=== PATIENT | male | born 1940 | race Caucasian/White ===

== ENCOUNTER → 2016-08-12 | Outpatient (CLI) | payer OTHER ==
[~2016-08-12] MED LIST: IOPAMIDOL (ISOVUE-300) 100 ML BTL ONE
== END ==
LOC: CIMAGING 09:07
PROVIDERS: ATTEND Family Medicine
DX: R13.10 Dysphagia, unspecified (principal); M62.89 Other specified disorders of muscle; M50.321 Other cervical disc degeneration at C4-C5 level
CPT/HCPCS: 70491; Q9967

== ENCOUNTER → 2017-06-07 | Outpatient (CLI) | payer OTHER | LOC: CIMAGING 15:45 | PROVIDERS: ATTEND Family Medicine | DX: N50.89 Other specified disorders of the male genital organs (principal); I86.1 Scrotal varices | CPT/HCPCS: 76870-PO ==